=== PATIENT | female | born 1985 | race African-American/Black ===

== ENCOUNTER 2021-08-18 22:16 | Inpatient (IN) ==
[2021-08-18 23:06] LABS: Bacteria,Urine Few /HPF (Few); Bilirubin,Urine Negative (Negative); Blood, Urine Small mg/dL (Negative); Glucose,Urine (UA) Negative (Negative); Ketones,Urine Negative (Negative); Mucus,Urine Occasional /LPF (Occasional); Nitrite,Urine Negative (Negative); Protein,Urine 100 MG/DL; RBC,Urine 4 /HPF (0-4); Squamous Epithelial Cell,Urine Many /HPF (0-10); Urine Appearance Slightly Hazy (Clear); Urine Color Yellow (Yellow); Urine Specific Gravity 1.012 (1.001-1.035)
[2021-08-19 00:14] LABS: Barbiturates Screen,Urine Negative (Negative); Benzodiazepines Screen,Urine Negative (Negative); Cannabinoid Screen,Urine Negative (Negative); Opiate Screen,Urine Negative (Negative); Phencyclidine Screen,Urine Negative (Negative)
[2021-08-19] MEDS ORDERED: ONDANSETRON 4 MG/2 ML VIAL IV PRN ×2 (00:26→12:45)
[2021-08-19] MEDS ORDERED: BUTORPHANOL 2 MG/ML VIAL IV PRN (00:26)
[2021-08-19] MEDS ORDERED: MAGNESIUM SULF RIDER 4 GM/100 ML PREMIX IV ONE (00:28)
[2021-08-19] MEDS ORDERED: MAGNESIUM SULF DRIP 40 GM/1,000 ML ML IV SCH (00:30)
[2021-08-19] MEDS ORDERED: AMPICILLIN INJ 2,000 MG in SODIUM CHLORIDE 0.9% 100 ML IV ONE (00:57)
[2021-08-19 01:11] LABS: Basophils % 0.3 % (0.0-0.8); Eosinophils # 0.1 10*3/uL (0.0-0.87); Eosinophils % 0.5 % (0.00-10.9); Hematocrit 26.6 VOL% (35.7-47.0); Immature Granulocytes % 1.4 %; Immature Granulocytes Absolute 0.15 #; Lymphocytes # 1.9 10*3/uL (1.4-4.0); Lymphocytes % 17.5 % (21.3-54.2); Mean Corpuscular HGB Conc 27.8 GM/DL (32-36); Mean Corpuscular Volume 72.1 FL (87-102); Monocytes % 8.5 % (1.7-12.7); NRBC # 0.12 10*3/uL; Neutrophils % 71.8 % (38.7-73.9); Platelet Count 290 T/CUMM (130-400); Red Blood Count 3.69 MC/CUMM (3.8-5.5); White Blood Count 10.7 T/CUMM (4-12)
[2021-08-19] MEDS: LACTATED RINGERS 1,000 ML IV SCH ×2 (01:13→10:32)
[2021-08-19 01:18] LABS: Alanine Aminotransferase < 9 U/L (13-56); Albumin 2.6 G/DL (3.4-5.0); Alkaline Phosphatase 211 U/L (45-117); Aspartate Amino Transferase 22 U/L (0-37); Blood Urea Nitrogen 8 MG/DL (7-18); Calcium 8.7 MG/DL (8.5-10.1); Carbon Dioxide 20 MMOL/L (21-32); Estimated Glom Filtration Rate 133 ML/MIN; Glucose 71 MG/DL (74-106); Osmolality,Calculated 268.8 MOS/KG (273-304); Potassium 4.3 MMOL/L (3.5-5.1); Sodium 137 MMOL/L (136-145); Total Protein 7.2 G/DL (6.4-8.2); Uric Acid 5.5 MG/DL (2.6-6.0)
[2021-08-19 01:22] LABS: INR 0.9; PT Patient Result 10.3 SECS (10.5-12.0); Partial Thromboplastin Time 26.4 SECS (23.8-32.1)
[2021-08-19 01:29] LABS: Hemoglobin 7.4 GM/DL (12.0-16.0)
[2021-08-19 02:30] LABS: Protein/Creatinine Ratio,Urine 0.9 RATIO
[2021-08-19] MEDS ORDERED: OXYTOCIN/LR 20 UNIT/1,000 ML BAG IV SCH (05:00)
[2021-08-19] MEDS: AMPICILLIN INJ 1,000 MG in SODIUM CHLORIDE 0.9% 100 ML IV SCH ×2 (05:30→09:15)
[2021-08-19] MEDS: MEPERIDINE 50 MG/1 ML VIAL IV PRN ×2 (05:31→09:17)
[2021-08-19] MEDS ORDERED: ePHEDrine 50 MG/ML VIAL IV PRN (09:02)
[2021-08-19] MEDS ORDERED: hydrOXYzine HCL 25 MG/1 ML VIAL IM PRN (09:02)
[2021-08-19] MEDS ORDERED: CITRIC ACID/SODIUM CITRATE 30 ML UDCUP PO ONE (09:02)
[2021-08-19] MEDS ORDERED: ceFAZolin 2,000 MG/50 ML DUPLEX IV ONE (09:02)
[2021-08-19] MEDS ORDERED: FAMOTIDINE 20 MG/2 ML VIAL IV ONE (09:02)
[2021-08-19] MEDS ORDERED: PROMETHAZINE 25 MG/1 ML VIAL IM ONE (09:02)
[2021-08-19] MEDS ORDERED: SODIUM CHLORIDE 0.9% 0 ML IV ONE (11:59)
[2021-08-19] MEDS ORDERED: PHENYLEPHRINE 1 MG/10 ML SYRINGE IV ONE (11:59)
[2021-08-19] MEDS ORDERED: CARBOPROST TROMETHAMINE 250 MCG/ML AMP IM ONE (11:59)
[2021-08-19] MEDS ORDERED: TRANEXAMIC ACID 1,000 MG/10 ML VIAL ONE (11:59)
[2021-08-19] MEDS ORDERED: ONDANSETRON 4 MG/2 ML VIAL ONE (11:59)
[2021-08-19] MEDS ORDERED: METHYLERGONOVINE 0.2 MG/1 ML AMP ONE (11:59)
[2021-08-19] MEDS ORDERED: BUPIVACAINE SPINAL 0.75% 2 ML AMP SPINAL ONE (11:59)
[2021-08-19] MEDS ORDERED: miSOPROStoL 200 MCG TABLET ONE (11:59)
[2021-08-19] MEDS ORDERED: fentaNYL 2 MCG/ROPIV 0.2% EPID 100 ML EPIDURAL SCH (12:00)
[2021-08-19] MEDS ORDERED: MIDAZOLAM 2 MG/2 ML VIAL ONE (12:23)
[2021-08-19] MEDS ORDERED: fentaNYL 250 MCG/5 ML VIAL ONE (12:23)
[2021-08-19] MEDS ORDERED: KETOROLAC 30 MG/1 ML VIAL ONE (12:31)
[2021-08-19] MEDS ORDERED: ACETAMINOPHEN INJ 1,000 MG/100 ML VIAL IV ONE (12:31)
[2021-08-19 12:37] LABS: Cord Arterial Blood HCO3 18.5 MMOL/L
[2021-08-19 12:38] LABS: Cord Venous Blood HCO3 22.3 MMOL/L; Cord Venous Blood PO2 28.7 MMHG
[2021-08-19] MEDS ORDERED: GLYCOPYRROLATE 0.4 MG/2 ML VIAL ONE (12:45)
[2021-08-19] MEDS ORDERED: SIMETHICONE CHEW 80 MG TABLET PO PRN (12:45)
[2021-08-19] MEDS ORDERED: ACETAMINOPHEN 325 MG TABLET PO PRN (12:45)
[2021-08-19] MEDS ORDERED: OXYTOCIN/LR 20 UNIT/1,000 ML BAG IV ONE (12:45)
[2021-08-19] MEDS ORDERED: MAGNESIUM HYDROXIDE SUSP 30 ML UDCUP PO PRN (12:45)
[2021-08-19] MEDS ORDERED: RHO(D) IMMUNE GLOBULIN 300 MCG SYRINGE IM ONE (12:45)
[2021-08-19] MEDS ORDERED: NEOSTIGMINE 10 MG/10 ML VIAL ONE (12:46)
[2021-08-19] MEDS ORDERED: HYDROmorphone 2 MG/1 ML VIAL ONE (12:51)
[2021-08-19] MEDS ORDERED: LACTATED RINGERS 1,000 ML IV SCH (13:00)
[2021-08-19 14:10] LABS: Bilirubin,Urine Negative (Negative); Blood, Urine Small mg/dL (Negative); Glucose,Urine (UA) Negative (Negative); Ketones,Urine Negative (Negative); Nitrite,Urine Negative (Negative); Protein,Urine Negative; RBC,Urine <1 /HPF (0-4); Squamous Epithelial Cell,Urine Occasional /HPF (0-10); Urine Appearance CLEAR (Clear); Urine Color Straw (Yellow); Urine Specific Gravity 1.008 (1.001-1.035); Urine Urobilinogen < 2.0 EU/DL (<2.0)
[2021-08-19] MEDS ORDERED: HYDROmorphone 2 MG/1 ML VIAL IV PRN (16:35)
[2021-08-19] MEDS: DOCUSATE SODIUM 100 MG CAPSULE PO SCH (21:05)
[2021-08-19] MEDS: ACETAMINOPHEN 500 MG TABLET PO SCH (21:05)
[2021-08-19] MEDS: KETOROLAC 30 MG/1 ML VIAL IV SCH (21:07)
[2021-08-20] MEDS: LACTATED RINGERS 1,000 ML IV SCH (01:46)
[2021-08-20] MEDS ORDERED: AMPICILLIN INJ 1,000 MG in SODIUM CHLORIDE 0.9% 100 ML IV ONE (05:00)
[2021-08-20] MEDS: KETOROLAC 30 MG/1 ML VIAL IV SCH ×2 (05:06→16:43)
[2021-08-20] MEDS: ACETAMINOPHEN 500 MG TABLET PO SCH (05:20)
[2021-08-20 07:43] LABS: Basophils % 0.1 % (0.0-0.8); Immature Granulocytes % 1.1 %; Immature Granulocytes Absolute 0.27 #; Lymphocytes # 1.7 10*3/uL (1.4-4.0); Lymphocytes % 7.1 % (21.3-54.2); Mean Corpuscular HGB Conc 27.6 GM/DL (32-36); Mean Corpuscular Volume 71.4 FL (87-102); Mean Platelet Volume 11.2 FL (9.6-12.0); Monocytes % 8.6 % (1.7-12.7); NRBC # 0.09 10*3/uL; Neutrophils % 83.1 % (38.7-73.9); Platelet Count 301 T/CUMM (130-400); Red Blood Count 2.13 MC/CUMM (3.8-5.5); Red Cell Distribution Width 22.1 % (9.3-17.3); White Blood Count 24.4 T/CUMM (4-12)
[2021-08-20 07:46] LABS: Hematocrit 15.2 VOL% (35.7-47.0); Hemoglobin 4.2 GM/DL (12.0-16.0)
[2021-08-20] MEDS ORDERED: SODIUM CHLORIDE 0.9% 1,000 ML IV PRN (07:52)
[2021-08-20 08:02] LABS: Lymphocytes 6 % (20-55); Nucleated Red Blood Cells 1 (0-5); Segmented Neutrophils 84 % (50-85); Total Cells Counted 100
[2021-08-20 08:03] LABS: Hypochromasia 1+; Microcytosis 2+; Platelet Estimate Normal; Polychromasia Slight; Target Cells Slight
[2021-08-20] MEDS: MULTIVITAMIN (PRENATAL) TABLET PO SCH (11:25)
[2021-08-20] MEDS: DOCUSATE SODIUM 100 MG CAPSULE PO SCH ×2 (11:25→21:17)
[2021-08-20] MEDS ORDERED: KETOROLAC 30 MG/1 ML VIAL IV ONE (16:01)
[2021-08-20 17:53] LABS: Hematocrit 22.5 VOL% (35.7-47.0)
[2021-08-20] MEDS: IRON (CARBONYL)/VIT C/B12/FA TABLET PO SCH (18:11)
[2021-08-20] MEDS: diphenhydrAMINE 50 MG/1 ML VIAL IV PRN (21:21)
[2021-08-21] MEDS: IBUPROFEN 800 MG TABLET PO PRN ×2 (02:11→15:14)
[2021-08-21] MEDS: diphenhydrAMINE 50 MG/1 ML VIAL IV PRN ×3 (05:16→16:55)
[2021-08-21] MEDS: MULTIVITAMIN (PRENATAL) TABLET PO SCH (08:31)
[2021-08-21] MEDS: IRON (CARBONYL)/VIT C/B12/FA TABLET PO SCH (08:31)
[2021-08-21] MEDS: DOCUSATE SODIUM 100 MG CAPSULE PO SCH (08:31)
[2021-08-21 12:27] VITALS: BP 141/86
[2021-08-22] MEDS ORDERED: SERTRALINE 50 MG TABLET PO SCH (09:00)
== END 2021-08-21 17:15 | disposition home or self-care (01) | DRG 540 ==
LOC: N.LDOUT 22:16 → N.LD 22:19 → N.OB 08-20 12:25
PROVIDERS: ADMIT Obstetrics & Gynecology; ATTEND Obstetrics & Gynecology
PROC: LDCSECT (ICD-10-PCS; 2021-08-19 12:00)